=== PATIENT | male | born 2000 | race Two or more races ===

== ENCOUNTER 2021-03-26 16:45 | Emergency (ER) | payer OTHER ==
[~2021-03-26] VITALS: Ht 182.9 cm; Wt 68.2 kg
[2021-03-26 17:00] VITALS: BP 121/69
== END 2021-03-26 17:50 | disposition home or self-care (01) ==
LOC: EMS 16:45
DX: M54.5 Low back pain (principal); V49.9XXA Car occupant (driver) (passenger) injured in unspecified traffic accident, initial encounter; Y93.89 Activity, other specified; Y92.89 Other specified places as the place of occurrence of the external cause; Y99.8 Other external cause status
CPT/HCPCS: 99283

== ENCOUNTER 2021-06-02 16:54 | Emergency (ER) | payer OTHER ==
[~2021-06-02] VITALS: Ht 184.2 cm; Wt 70.5 kg
[2021-06-02 17:03] VITALS: BP 139/58
== END 2021-06-02 18:18 | disposition home or self-care (01) ==
LOC: EMS 16:57
DX: Z00.00 Encounter for general adult medical examination without abnormal findings (principal)
CPT/HCPCS: 99281; Z7502

== ENCOUNTER 2024-02-18 17:48 | Emergency (ER) | payer OTHER ==
[~2024-02-18] VITALS: Ht 182.9 cm; Wt 72.7 kg
[2024-02-18 18:02] VITALS: BP 108/77; PULSE 82; RESP 18; TEMP 98.5
== END 2024-02-18 19:22 | disposition home or self-care (01) ==
LOC: EMS 17:49
DX: Q18.1 Preauricular sinus and cyst (principal)
CPT/HCPCS: 99281; Z7502